=== PATIENT | male | born 1995 | race Two or more races ===

== ENCOUNTER 2019-03-15 22:19 | Emergency (ER) | payer BC, OTHER ==
--- NOTE | 2019-03-16 00:42 | CR ---
INDICATION: Chest pain TECHNIQUE: Chest radiograph 1 view COMPARISON: None FINDINGS: Mediastinum: The mediastinum is normal in appearance. The heart silhouette is normal in size and morphology. Lung: Both lungs are unremarkable in appearance. No sign of pleural effusion seen. No pneumothorax is identified. Bone and Soft tissue: Unremarkable for age. IMPRESSION: 1. No acute cardiopulmonary disease is seen. Dictated by: Alban Manzo MD @ 03/16/2019 00:41:12 (Electronically Signed)
--- NOTE | 2019-03-16 01:05 | EDM.PDOC ---
ED HPI GENERAL MEDICAL PROBLEM - General Chief Complaint: Respiratory Problem Stated Complaint: FLU SYMPTOMS Time Seen by Provider: 03/15/19 22:25 Source of Information: Reports: Patient History Limitations: Reports: No Limitations - History of Present Illness INITIAL COMMENTS - FREE TEXT/NARRATIVE: Complains of fever chills and shortness of breath. Patient has a history of influenza in his family at this time Onset: Gradual Duration: Day(s): (3), Getting Worse Location: Reports: Chest Severity: Mild Improves with: Reports: None Worsens with: Reports: None Context: Reports: Sick Contact Associated Symptoms: Reports: Cough, Fever/Chills, Shortness of Breath - Related Data Allergies Allergy/AdvReac Type Severity Reaction Status Date / Time No Known Allergies Allergy Verified 08/30/18 21:33 Home Meds: Home Meds . [No Known Home Meds] 12/03/16 [History] Past Medical History - Past Health History Medical/Surgical History: Denies Medical/Surgical History HEENT History: Reports: None Cardiovascular History: Reports: None Respiratory History: Reports: None Gastrointestinal History: Reports: None Other Gastrointestinal History: inflammed spleen Genitourinary History: Reports: None Musculoskeletal History: Reports: None Neurological History: Reports: None Psychiatric History: Reports: None Endocrine/Metabolic History: Reports: None Hematologic History: Reports: None Immunologic History: Reports: None Oncologic (Cancer) History: Reports: None Dermatologic History: Reports: None - Infectious Disease History Infectious Disease History: Reports: Chicken Pox, Mononucleosis - Past Surgical History Head Surgeries/Procedures: Reports: None Social & Family History - Family History Family Medical History: Noncontributory - Tobacco Use Smoking Status *Q: Never Smoker - Caffeine Use Caffeine Use: Reports: Energy Drinks - Recreational Drug Use Recreational Drug Use: No ED ROS GENERAL - Review of Systems Review Of Systems: Comprehensive ROS is negative, except as noted in HPI. Constitutional: Reports: Fever, Chills HEENT: Reports: No Symptoms Respiratory: Reports: No Symptoms, Shortness of Breath Cardiovascular: Reports: No Symptoms Endocrine: Reports: No Symptoms GI/Abdominal: Reports: No Symptoms : Reports: No Symptoms Musculoskeletal: Reports: No Symptoms Skin: Reports: No Symptoms Neurological: Reports: No Symptoms Psychiatric: Reports: No Symptoms Hematologic/Lymphatic: Reports: No Symptoms Immunologic: Reports: No Symptoms ED EXAM, GENERAL - Physical Exam Exam: See Below Exam Limited By: No Limitations General Appearance: Alert, WD/WN, No Apparent Distress Eye Exam: Bilateral Eye: Normal Fundi, Normal Inspection, PERRL Ears: Normal External Exam, Normal Canal, Hearing Grossly Normal, Normal TMs Ear Exam: Bilateral Ear: Auricle Normal, Canal Normal, TM normal Nose: Normal Inspection, Normal Mucosa, No Blood Throat/Mouth: Normal Inspection, Normal Lips, Normal Teeth, Normal Oropharynx Head: Atraumatic, Normocephalic Neck: Normal Inspection, Supple Respiratory/Chest: No Respiratory Distress, Lungs Clear, Normal Breath Sounds Cardiovascular: Normal Peripheral Pulses, Regular Rate, Rhythm GI/Abdominal: Normal Bowel Sounds, No Abnormal Bruit (Male) Exam: Deferred Rectal (Males) Exam: Deferred Extremities: Normal Inspection, Normal Range of Motion Neurological: Alert, Oriented, CN II-XII Intact, Normal Cognition Skin Exam: Warm, Dry, Intact, Normal Color Course - Vital Signs Last Recorded V/S: Last Vital Signs Temp 97.8 F 03/15/19 23:16 Pulse 88 03/15/19 23:16 Resp 18 03/15/19 23:16 BP 130/69 03/15/19 23:16 Pulse Ox 97 03/15/19 23:16 - Orders/Labs/Meds Orders: Active Orders 24 hr Category Date Time Status INFLUENZA A+B AG SCREEN [RM] Stat Lab 03/16/19 00:05 Ordered Departure - Departure Time of Disposition: 01:10 Disposition: Home, Self-Care 01 Condition: Good Clinical Impression: Influenza - Discharge Information *PRESCRIPTION DRUG MONITORING PROGRAM REVIEWED*: Yes *COPY OF PRESCRIPTION DRUG MONITORING REPORT IN PATIENT CARLA: Yes Instructions: Influenza, Adult, [id number], VIS, Influenza (Flu) Vaccine ( Live, Intranasal) - CDC (10/08/2014) Referrals: PCP,None [Primary Care Provider] - Forms: ED Department Discharge Sepsis Event Note - Evaluation Sepsis Screening Result: No Definite Risk - Focused Exam Vital Signs: Vital Signs Temp Pulse Resp BP Pulse Ox 03/15/19 23:16 97.8 F 88 18 130/69 97 Date Exam was Performed: 03/16/19 Time Exam was Performed: 01:06 - My Orders Last 24 Hours: My Active Orders 03/16/19 00:05 INFLUENZA A+B AG SCREEN [RM] Stat - Assessment/Plan Last 24 Hours: My Active Orders 03/16/19 00:05 INFLUENZA A+B AG SCREEN [RM] Stat
[2019-03-16 01:24] VITALS: BP 112/56; PULSE 68
== END 2019-03-16 01:15 | disposition home or self-care (01) ==
LOC: MW.ED 22:19
DX: J11.1 Influenza due to unidentified influenza virus with other respiratory manifestations (principal)
CPT/HCPCS: 71045; 71045-26; 87804; 99285-25

== ENCOUNTER 2019-11-21 22:14 | Emergency (ER) | payer BC, OTHER ==
[2019-11-21] MEDS ORDERED: Sodium Chloride 0.9% 10 ML Syringe FLUSH PRN (22:19)
[2019-11-21] MEDS ORDERED: Sodium Chloride 0.9% 2.5 ML Syringe FLUSH PRN (22:19)
[2019-11-21] MEDS ORDERED: Aspirin 81 MG Tab.Chew PO ONE (22:19)
[2019-11-21] MEDS ORDERED: Sodium Chloride 0.9% 1,000 ML IV ONE (22:19)
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
--- NOTE | 2019-11-21 22:40 | CR ---
Chest: Frontal view of the chest was obtained. Comparison: No prior chest x-ray. Heart size and mediastinum are normal. Lungs are clear with no acute parenchymal change. Bony structures appear within normal limits. Impression: 1. Nothing acute is seen on frontal chest x-ray. Diagnostic code #1 Study was dictated in MDT
[2019-11-21 22:44] LABS: BLOOD UREA NITROGEN,BUN 16 mg/dL (7.0-18.0); CARBON DIOXIDE,CO2 15.5 mmol/L (21.0-32.0); CHLORIDE,CL 103 mmol/L (98-107); GLUCOSE RANDOM 119 mg/dL (74-106); SODIUM,NA 142 mmol/L (136-148)
[2019-11-21] MEDS ORDERED: Acetaminophen 325 MG Tab PO ONE (22:47)
[2019-11-21] MEDS ORDERED: Acetaminophen 500 MG Tab ONE (22:49)
[2019-11-21] MEDS ORDERED: Acetaminophen 500 MG Tab PO ONE (22:51)
--- NOTE | 2019-11-22 00:17 | CT ---
INDICATION: Headache TECHNIQUE: CT head without contrast. COMPARISON: None available FINDINGS: The ventricles and sulci are within normal limits. There is no mass effect or midline shift. There is no loss of saini-white differentiation. There is mild prominence of the pituitary gland which demonstrates increased attenuation, although some of this could be related to regional artifact. There is no evidence of an acute extra-axial hemorrhage. No acute calvarial fracture is seen. There is mild maxillary sinus mucosal thickening with a left maxillary sinus air-fluid level and inspissated debris. The mastoid air cells are clear. The visualized orbits are within normal limits. IMPRESSION: No evidence of an acute extra-axial hemorrhage, mass effect or loss of saini-white differentiation. Mild pituitary prominence, demonstrating high attenuation, versus artifact. Correlate clinically and, if indicated, with follow-up imaging evaluation. Maxillary sinus disease with a left maxillary sinus air-fluid level. Dictated by Chris Lau MD @ 11/22/2019 12:14:20 AM Please note that all CT scans at this facility use dose modulation, iterative reconstruction, and/or weight-based dosing when appropriate to reduce radiation dose to as low as reasonably achievable. Dictated by: Chris Lau MD @ 11/22/2019 00:14:26 (Electronically Signed)
[2019-11-23 02:08] VITALS: BP 129/87; PULSE 88
== END 2019-11-23 00:44 | disposition home or self-care (01) ==
LOC: MW.ED 22:14
DX: R42 Dizziness and giddiness (principal); R51 Headache; R00.0 Tachycardia, unspecified; R06.02 Shortness of breath
CPT/HCPCS: 36415; 70450; 71045; 80053; 84484; 85025; 85379; 93005; 96360; 99285; A9270; J7030; 99283

== ENCOUNTER 2020-07-01 08:03 | Day surgery (SDC) | payer OTHER ==
[2020-07-01] MEDS ORDERED: Morphine 4 MG/ML Syringe IVPUSH ONE ×2 (08:18→12:35)
[2020-07-01] MEDS ORDERED: Ondansetron 4 MG/2 ML SDV IVPUSH ONE (08:18)
[2020-07-01] MEDS ORDERED: Sodium Chloride 0.9% 1,000 ML IV ONE (08:18)
[2020-07-01 08:55] LABS: BLOOD UREA NITROGEN,BUN 10 mg/dL (7.0-18.0); CARBON DIOXIDE,CO2 27.6 mmol/L (21.0-32.0); CHLORIDE,CL 103 mmol/L (98-107); GLUCOSE RANDOM 105 mg/dL (74-106); LIPASE 73 U/L (73-393); POTASSIUM,K 4.3 mmol/L (3.5-5.1); SODIUM,NA 141 mmol/L (136-148)
--- NOTE | 2020-07-01 09:01 | CR ---
INDICATION: Epigastric pain TECHNIQUE: Chest 1 views COMPARISON: November 21, 2019 FINDINGS: Cardiovascular and mediastinum: Heart size and vasculature are normal in caliber and appearance. Lungs and pleural spaces: Lungs are clear. No sign of infiltrate or mass. No sign of pleural effusion. No pneumothorax. Bones and soft tissues: No significant findings. IMPRESSION: No acute findings and no significant changes from the prior exam. Dictated by Reinier Palacios MD @ 07/01/2020 8:59:[address] Reinier Palacios @ Jul 01 2020 8:59AM
[2020-07-01] MEDS ORDERED: Iopamidol 755 MG/ML 500 ML Multipack Bottle IVPUSH ONE (09:18)
--- NOTE | 2020-07-01 10:12 | CT ---
INDICATION: Epigastric pain. TECHNIQUE: CT of the abdomen and pelvis with 100 cc Isovue 370 IV contrast. Coronal and sagittal reconstructions. COMPARISON: None. FINDINGS: Marked diffuse hepatic steatosis. Areas of focal fatty sparing about the gallbladder fossa. Hepatic and portal veins are patent. The gallbladder, spleen, pancreas, and adrenal glands are negative. Symmetric enhancement of the kidneys. 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 No hydronephrosis. No obstructing urinary calculi. The bladder and prostate gland are unremarkable. Small fat containing right inguinal hernia. No evidence of bowel obstruction. The colon is normal in appearance. The appendix is upper limits of normal in size measuring 6-7 mm in diameter and contains diffuse hyperdense material which may represent appendicoliths (series 203, image 49). No surrounding inflammatory changes or fluid collection. No intraperitoneal free air or fluid. No lymphadenopathy. Small benign bone island in the right femoral head. The bones are otherwise unremarkable. Small nodule along the right minor fissure most likely represents a benign intrapulmonary lymph node (series 202 image 3). The lung bases are otherwise clear. IMPRESSION: 1. Marked diffuse hepatic steatosis. 2. Appendix size upper limits of normal containing diffuse hyperdense material which may represent appendicoliths. No current evidence of inflammation. 3. No other acute findings in the abdomen or pelvis. Please note that all CT scans at this facility use dose modulation, iterative reconstruction, and/or weight-based dosing when appropriate to reduce radiation dose to as low as reasonably achievable. Dictated by Krista Tomlin MD @ 07/01/2020 10:10:[address] Krista Tomlin @ Jul 01 2020 10:10AM
--- NOTE | 2020-07-01 10:15 | EDM.PDOC ---
ED HPI GENERAL MEDICAL PROBLEM - General Chief Complaint: Abdominal Pain Stated Complaint: stomache pain Time Seen by Provider: 07/01/20 08:10 - History of Present Illness INITIAL COMMENTS - FREE TEXT/NARRATIVE: Patient is a 25-year-old male he is otherwise well is presenting with aching 8 out of 10 periumbilical abdominal pain associated with nonbloody nonbilious emesis symptoms have been constant gradually worsening since 10pm last night associated with p.o. intolerance. No diarrhea. No fevers no chest pain no cough no shortness of breath. No other symptoms. Patient can tolerate small sips of water but anything more than at least emesis. No alleviating factors the pain radiates around bilateral to the lower back. Abdominal Pain Score (Numeric/FACES): 9 - Related Data Allergies Allergy/AdvReac Type Severity Reaction Status Date / Time No Known Allergies Allergy Verified 07/01/20 08:42 Home Meds: Home Meds . [No Known Home Meds] 12/03/16 [History] Past Medical History - Past Health History Medical/Surgical History: Denies Medical/Surgical History HEENT History: Reports: None Cardiovascular History: Reports: None Respiratory History: Reports: None Gastrointestinal History: Reports: None Other Gastrointestinal History: inflammed spleen Genitourinary History: Reports: None Musculoskeletal History: Reports: None Neurological History: Reports: None Psychiatric History: Reports: None Endocrine/Metabolic History: Reports: None Hematologic History: Reports: None Immunologic History: Reports: None Oncologic (Cancer) History: Reports: None Dermatologic History: Reports: None - Infectious Disease History Infectious Disease History: Reports: Chicken Pox, Mononucleosis, Novel Coronavirus - Past Surgical History Head Surgeries/Procedures: Reports: None Social & Family History - Family History Family Medical History: No Pertinent Family History - Tobacco Use Tobacco Use Status *Q: Never Tobacco User - Caffeine Use Caffeine Use: Reports: Energy Drinks - Recreational Drug Use Recreational Drug Use: No ED ROS GENERAL - Review of Systems Review Of Systems: See Below Free Text/Narrative/Comment: General: No fever. Skin: No rash. Eyes: No vision problems. ENT: No sore throat. Neck: No neck stiffness. Respiratory: No shortness of breath. Cardiac: No chest pain. Gastrointestinal: Per HPI Urinary: No dysuria. Musculoskeletal: No myalgias/arthralgias. Neurologic: No headache. ED EXAM, GENERAL - Physical Exam Exam: See Below Free Text/Narrative:: General Appearance: No acute distress, appears comfortable Skin: No rash HEENT: Normocephalic/atraumatic, sclera anicteric, mucous membranes dry Neck: Normal range of motion Chest and Lungs: Bilateral breath sounds, clear to auscultation Cardiovascular: Regular rate and rhythm, no murmur Abdomen: periumbilical tenderness without guarding or rebound abdomen soft Back: Normal Musculoskeletal: No edema or tenderness Neurologic: Awake, alert, no obvious deficits, moving all extremities Psychiatric: Appropriate, cooperative Course - Vital Signs Last Recorded V/S: Last Vital Signs Temp 98.0 F 07/01/20 08:44 Pulse 95 07/01/20 13:25 Resp 18 07/01/20 13:25 BP 102/57 L 07/01/20 13:25 Pulse Ox 98 07/01/20 13:25 - Orders/Labs/Meds Orders: Active Orders 24 hr Category Date Time Status Verify Patient Consent Obtain [RC] ASDIRECTED Care 07/01/20 12:23 Active Labs: Laboratory Tests 07/01/20 07/01/20 07/01/20 Range/Units 08:23 08:23 10:46 WBC 13.18 H (4.0-11.0) K/uL RBC 5.61 (4.50-5.90) M/uL Hgb 17.0 (13.0-17.0) g/dL Hct 49.0 (38.0-50.0) % MCV 87.3 (80.0-98.0) fL MCH 30.3 (27.0-32.0) pg MCHC 34.7 (31.0-37.0) g/dL RDW Std Deviation 41.2 (28.0-62.0) fl RDW Coeff of Frandy 13 (11.0-15.0) % Plt Count 207 (150-400) K/uL MPV 10.70 (7.40-12.00) fL Neut % (Auto) 84.9 H (48.0-80.0) % Lymph % (Auto) 5.6 L (16.0-40.0) % [place] % (Auto) 8.0 (0.0-15.0) % Eos % (Auto) 1.3 (0.0-7.0) % Baso % (Auto) 0.2 (0.0-1.5) % Neut # (Auto) 11.2 H (1.4-5.7) K/uL Lymph # (Auto) 0.7 (0.6-2.4) K/uL [place] # (Auto) 1.1 H (0.0-0.8) K/uL Eos # (Auto) 0.2 (0.0-0.7) K/uL Baso # (Auto) 0.0 (0.0-0.1) K/uL Nucleated RBC % 0.0 /100WBC Nucleated RBCs # 0 K/uL Sodium 141 (136-148) mmol/L Potassium 4.3 (3.5-5.1) mmol/L Chloride 103 (98-107) mmol/L Carbon Dioxide 27.6 (21.0-32.0) mmol/L BUN 10 (7.0-18.0) mg/dL Creatinine 1.1 (0.8-1.3) mg/dL Est Cr Clr Drug Dosing 101.77 mL/min Estimated GFR (MDRD) > 60.0 ml/min Glucose 105 (74-106) mg/dL Calcium 8.5 (8.5-10.1) mg/dL Total Bilirubin 1.3 H (0.2-1.0) mg/dL AST 17 (15-37) IU/L ALT 67 H (14-63) IU/L Alkaline Phosphatase 61 (46-116) U/L Total Protein 7.7 (6.4-8.2) g/dL Albumin 4.3 (3.4-5.0) g/dL Globulin 3.4 (2.6-4.0) g/dL Albumin/Globulin Ratio 1.3 (0.9-1.6) Lipase 73 (73-393) U/L SARS-CoV-2 RNA (ELIER) NEGATIVE (NEGATIVE) Meds: Medications Discontinued Medications Generic Name Dose Route Start Last Admin Trade Name Freq PRN Reason Stop Dose Admin Dexamethasone Confirm 07/01/20 13:08 Dexamethasone 4 Mg/Ml 5 Ml Mdv Administered 07/01/20 13:09 Dose 20 mg .ROUTE .STK-MED ONE Ertapenem Confirm 07/01/20 12:21 07/01/20 12:44 Ertapenem 1 Gm Vial Administered 07/01/20 12:22 Not Given Dose 1 gm .ROUTE .STK-MED ONE Fentanyl Confirm 07/01/20 13:09 Fentanyl 100 Mcg/2 Ml Sdv Administered 07/01/20 13:10 Dose 100 mcg .ROUTE .STK-MED ONE Sodium Chloride 1,000 mls @ 999 mls/hr 07/01/20 08:18 07/01/20 08:39 Normal Saline IV 07/01/20 09:18 999 mls/hr .Bolus ONE Administration Lactated Ringer's 1,000 mls @ 999 mls/hr 07/01/20 10:29 07/01/20 10:33 Ringers, Lactated IV 07/01/20 11:29 999 mls/hr .BOLUS ONE Administration Ertapenem 1 gm/ Sodium 50 mls @ 100 mls/hr 07/01/20 12:07 07/01/20 13:25 Chloride IV 07/01/20 12:36 Not Given ONETIME ONE Ertapenem 1 gm/ Sodium 50 mls @ 100 mls/hr 07/01/20 12:30 07/01/20 12:35 Chloride IV 07/01/20 12:59 100 mls/hr ONETIME ONE Administration Iopamidol 100 ml 07/01/20 09:18 07/01/20 09:19 Iopamidol 755 Mg/Ml 500 Ml Multipack Bottle IVPUSH 07/01/20 09:19 100 ml ONETIME ONE Administration Ketamine HCl Confirm 07/01/20 13:12 Ketamine 500 Mg/10 Ml Mdv Administered 07/01/20 13:13 Dose 500 mg .ROUTE .STK-MED ONE Lidocaine Confirm 07/01/20 13:08 Lidocaine 2% 5 Ml Sdv Administered 07/01/20 13:09 Dose 5 ml .ROUTE .STK-MED ONE Midazolam HCl Confirm 07/01/20 13:09 Midazolam 1 Mg/Ml 2 Ml Sdv Administered 07/01/20 13:10 Dose 2 mg .ROUTE .STK-MED ONE Morphine Sulfate 4 mg 07/01/20 08:18 07/01/20 08:37 Morphine 4 Mg/Ml Syringe IVPUSH 07/01/20 08:19 4 mg ONETIME ONE Administration Morphine Sulfate 4 mg 07/01/20 12:35 07/01/20 12:39 Morphine 4 Mg/Ml Syringe IVPUSH 07/01/20 12:36 4 mg ONETIME ONE Administration Ondansetron HCl 4 mg 07/01/20 08:18 07/01/20 08:37 Ondansetron 4 Mg/2 Ml Sdv IVPUSH 07/01/20 08:19 4 mg ONETIME ONE Administration Ondansetron HCl Confirm 07/01/20 13:08 Ondansetron 4 Mg/2 Ml Sdv Administered 07/01/20 13:09 Dose 4 mg .ROUTE .STK-MED ONE Propofol Confirm 07/01/20 13:09 Propofol 200 Mg/20 Ml Sdv Administered 07/01/20 13:10 Dose 400 mg .ROUTE .STK-MED ONE Rocuronium [place] Confirm 07/01/20 13:08 Rocuronium [place] 50 Mg/5 Ml Syringe Administered 07/01/20 13:09 Dose 50 mg .ROUTE .STK-MED ONE Departure - Departure Time of Disposition: 12:09 Disposition: Still A Patient 30 Condition: Good Clinical Impression: Acute appendicitis - Discharge Information *PRESCRIPTION DRUG MONITORING PROGRAM REVIEWED*: Not Applicable *COPY OF PRESCRIPTION DRUG MONITORING REPORT IN PATIENT CARLA: Not Applicable Forms: ED Department Discharge Sepsis Event Note (ED) - Evaluation Sepsis Screening Result: No Definite Risk - Focused Exam Vital Signs: Vital Signs Temp Pulse Resp BP Pulse Ox 07/01/20 13:25 95 18 102/57 L 98 07/01/20 10:54 92 16 117/63 96 07/01/20 10:50 126/73 07/01/20 10:10 97 16 106/72 97 07/01/20 09:40 90 110/56 L 97 07/01/20 08:44 98.0 F 93 17 102/54 L 95 - Assessment/Plan Assessment:: 25-year-old male presenting with signs and symptoms most insistent with a gastritis. There is a significant viral gastritis it is going around the community and this could be an additional case of that. However, multiple other options considered as well. Given the focal abdominal tenderness CT has been ordered to exclude diverticulitis and appendicitis. Could also consider pancreatitis though no clear risk factors for this. No cough no fever no myalgias nothing that suggest coronavirus infection. Patient does clearly of dry mucous membranes is clinically dehydrated so IV fluid has been ordered in addition to Zofran. Further work-up and disposition pending results of initial testing response to therapy. 1025: Labs with minimal leukocytosis. CT scan demonstrates an appendix that is at the upper limits of normal with significant material within it but no periappendiceal cecal inflammation. On repeat assessment his symptoms have improved with the morphine. However, on exam he continues to have periumbilical and right lower quadrant abdominal pain. Given this we will discuss with general surgery. 1030: Pt discussed with Dr. Teague. He will come assess the patient. 1208: Pt evaluated by Dr. Teague. This is felt to be acute appendicitis. Requests Invanz for 24 hour coverage and will plan for surgery this afternoon. If goes well then can likely be same day surgery so will not place bed order at this time. Pt will go from here to OR.
[2020-07-01] MEDS ORDERED: Lactated Ringers 1,000 ML IV ONE (10:29)
[2020-07-01] MEDS ORDERED: Ertapenem 1 GM in Sodium Chloride 0.9% 50 ML IV ONE ×2 (12:07→12:30)
[2020-07-01] MEDS ORDERED: Ertapenem 1 GM Vial ONE (12:21)
[2020-07-01] MEDS ORDERED: Ondansetron 4 MG/2 ML SDV ONE (13:08)
[2020-07-01] MEDS ORDERED: Rocuronium Bromide 50 MG/5 ML Syringe ONE (13:08)
[2020-07-01] MEDS ORDERED: Lidocaine 2% 5 ML SDV ONE (13:08)
[2020-07-01] MEDS ORDERED: Dexamethasone 4 MG/ML 5 ML MDV ONE (13:08)
[2020-07-01] MEDS ORDERED: Propofol 200 MG/20 ML SDV ONE (13:09)
[2020-07-01] MEDS ORDERED: fentaNYL 100 MCG/2 ML SDV ONE (13:09)
[2020-07-01] MEDS ORDERED: Midazolam 1 MG/ML 2 ML SDV ONE (13:09)
[2020-07-01] MEDS ORDERED: Ketamine 500 mg/10 ML MDV ONE (13:12)
--- NOTE | 2020-07-01 13:43 | CONS ---
DATE OF CONSULTATION: 07/01/2020 DATE OF : 1995 PRIMARY CARE PHYSICIAN: None PCP HISTORY OF PRESENT ILLNESS: The patient is a pleasant 25-year-old gentleman who stated that last evening, around 10:30, he developed some abdominal pain. The abdominal pain was more around his umbilicus. He said the pain has slowly increased throughout the evening and was so much he has had come in this morning to be evaluated in the ER. The patient also had some nausea with one emesis. The patient says the pain is more on the right side now. He says that walking or pushing on his abdomen tend to make the pain worse. He denies any changes in his bowel habits. Denies any fevers or chills. He did have a CT scan done which did show an appendix that was upper limits of dilated, but had hyperdense material in it which could represent appendicolith. There were no surrounding inflammatory changes though. He also had diffuse hepatic steatosis. He also had labs done which did show an elevated white cell count of 13.18. PAST MEDICAL HISTORY: Significant for history of mono. CURRENT HOME MEDICATIONS: The patient denies any. ALLERGIES: The patient denies any. PAST SURGICAL HISTORY: The patient denies any. FAMILY HISTORY: 1. Maternal grandfather had pancreatic cancer. 2. Mother had colon cancer. SOCIAL HISTORY: The patient does use chewing tobacco. Denies illicit drug use. Does have occasional alcohol socially. REVIEW OF SYSTEMS: Complete 12+ review of systems was done and was negative except for what is noted in the HPI. LABORATORY DATA: White cell count is 13.18, hemoglobin is 13, and platelet count is 207. Sodium 141, potassium 3.3, chloride 103, bicarbonate is 27.6, BUN 10, and creatinine 1.1. Total bilirubin 1.3, AST is 17, and ALT is 67. COVID is negative. IMAGING: I did review his CT scan. It does show appendix as hyperdense, does go a little more posterior over the psoas muscles which could explain his pain with walking. PHYSICAL EXAMINATION: GENERAL: The patient is resting comfortably in his ER bed. He is alert and oriented, in no acute distress. VITAL SIGNS: Temperature is 98, pulse is 92, blood pressure is 117/63, saturating 96% on room air. HEENT: Head is normocephalic and atraumatic. LUNGS: Clear to auscultation bilaterally. No rhonchi or wheezing heard. HEART: Regular rate and rhythm. No murmur appreciated. ABDOMEN: Soft and nondistended. He is tender on his abdomen in the right side, more at McBurney's. The most pain tends to be on palpation at the McBurney point, but also has it in the distal right flank side. No rebound, but starting to have some guarding. EXTREMITIES: No edema. NEUROLOGIC: Grossly, no motor or neurologic deficits noted. ASSESSMENT AND PLAN: This is a pleasant 25-year-old gentleman with pain that started yesterday, but increasing, was at the umbilicus, now more at the right side, most tender at McBurney point. CT scan shows upper limits of normal dilated appendix with hyperdense material in it, does have a white cell count, and it is most tender at McBurney point. I reviewed with the patient that he likely has acute appendicitis. I went over the risks, goals, and alternatives to laparoscopic appendectomy. Risks include, but not limited to bleeding, infection, abscess formation, failure of the staple line, need to convert to open, injury to nearby structures such as small bowel or ureter, hernia formation, and that this could be something other than appendicitis. The patient understands. The patient wishes to proceed with the surgery. The patient did receive antibiotics. We will get him scheduled in the OR for a laparoscopic appendectomy. All the patient's questions were answered. He does wish to be full code. HANNAH / IVON /[id number]
[2020-07-01] MEDS ORDERED: Famotidine 20 MG/2 ML SDV IVPUSH ONE (14:26)
--- NOTE | 2020-07-01 14:26 | PCM.PREANE ---
Preanesthetic Assessment - Procedure Proposed Procedure: laparoscopic appendectomy - Anesthesia/Transfusion/Family Hx Anesthesia History: No Prior Anesthesia Family History of Anesthesia Reaction: No Transfusion History: No Prior Transfusion(s) - Review of Systems General: No Symptoms Pulmonary: No Symptoms Cardiovascular: No Symptoms Gastrointestinal: No Symptoms Neurological: No Symptoms Other: Reports: None - Physical Assessment NPO Status Date: 07/01/20 NPO Status Time: 10:00 Vital Signs: Last Vital Signs Temp 36.7 C 07/01/20 08:44 Pulse 95 07/01/20 13:25 Resp 18 07/01/20 13:25 BP 102/57 L 07/01/20 13:25 Pulse Ox 98 07/01/20 13:25 Height: 5 ft 9 in Weight: 77.111 kg ASA Class: 1 Mental Status: Alert & Oriented x3 Dentition: Reports: Normal Dentition Thyro-Mental Finger Breadths: 3 Mouth Opening Finger Breadths: 3 ROM/Head Extension: Full Lungs: Clear to Auscultation, Normal Respiratory Effort Cardiovascular: Regular Rate, Regular Rhythm - Lab Values: Laboratory Last Values WBC 13.18 K/uL (4.0-11.0) H 07/01/20 08:23 RBC 5.61 M/uL (4.50-5.90) 07/01/20 08:23 Hgb 17.0 g/dL (13.0-17.0) 07/01/20 08:23 Hct 49.0 % (38.0-50.0) 07/01/20 08:23 MCV 87.3 fL (80.0-98.0) 07/01/20 08:23 MCH 30.3 pg (27.0-32.0) 07/01/20 08:23 MCHC 34.7 g/dL (31.0-37.0) 07/01/20 08:23 RDW Std Deviation 41.2 fl (28.0-62.0) 07/01/20 08:23 RDW Coeff of Frandy 13 % (11.0-15.0) 07/01/20 08:23 Plt Count 207 K/uL (150-400) 07/01/20 08:23 MPV 10.70 fL (7.40-12.00) 07/01/20 08:23 Neut % (Auto) 84.9 % (48.0-80.0) H 07/01/20 08:23 Lymph % (Auto) 5.6 % (16.0-40.0) L 07/01/20 08:23 [place] % (Auto) 8.0 % (0.0-15.0) 07/01/20 08:23 Eos % (Auto) 1.3 % (0.0-7.0) 07/01/20 08:23 Baso % (Auto) 0.2 % (0.0-1.5) 07/01/20 08:23 Neut # (Auto) 11.2 K/uL (1.4-5.7) H 07/01/20 08:23 Lymph # (Auto) 0.7 K/uL (0.6-2.4) 07/01/20 08:23 [place] # (Auto) 1.1 K/uL (0.0-0.8) H 07/01/20 08:23 Eos # (Auto) 0.2 K/uL (0.0-0.7) 07/01/20 08:23 Baso # (Auto) 0.0 K/uL (0.0-0.1) 07/01/20 08:23 Nucleated RBC % 0.0 /100WBC 07/01/20 08:23 Nucleated RBCs # 0 K/uL 07/01/20 08:23 Sodium 141 mmol/L (136-148) 07/01/20 08:23 Potassium 4.3 mmol/L (3.5-5.1) 07/01/20 08:23 Chloride 103 mmol/L (98-107) 07/01/20 08:23 Carbon Dioxide 27.6 mmol/L (21.0-32.0) 07/01/20 08:23 BUN 10 mg/dL (7.0-18.0) 07/01/20 08:23 Creatinine 1.1 mg/dL (0.8-1.3) 07/01/20 08:23 Est Cr Clr Drug Dosing 101.77 mL/min 07/01/20 08:23 Estimated GFR (MDRD) > 60.0 ml/min 07/01/20 08:23 Glucose 105 mg/dL (74-106) 07/01/20 08:23 Calcium 8.5 mg/dL (8.5-10.1) 07/01/20 08:23 Total Bilirubin 1.3 mg/dL (0.2-1.0) H 07/01/20 08:23 AST 17 IU/L (15-37) 07/01/20 08:23 ALT 67 IU/L (14-63) H 07/01/20 08:23 Alkaline Phosphatase 61 U/L (46-116) 07/01/20 08:23 Total Protein 7.7 g/dL (6.4-8.2) 07/01/20 08:23 Albumin 4.3 g/dL (3.4-5.0) 07/01/20 08:23 Globulin 3.4 g/dL (2.6-4.0) 07/01/20 08:23 Albumin/Globulin Ratio 1.3 (0.9-1.6) 07/01/20 08:23 Lipase 73 U/L (73-393) 07/01/20 08:23 SARS-CoV-2 RNA (ELIER) NEGATIVE (NEGATIVE) 07/01/20 10:46 - Allergies Allergies/Adverse Reactions: Allergies Allergy/AdvReac Type Severity Reaction Status Date / Time No Known Allergies Allergy Verified 07/01/20 08:42 - Anesthesia Plan Pre-Op Medication Ordered: None - Acknowledgements Anesthesia Type Planned: General Anesthesia Pt an Appropriate Candidate for the Planned Anesthesia: Yes Alternatives and Risks of Anesthesia Discussed w Pt/Guardian: Yes Pt/Guardian Understands and Agrees with Anesthesia Plan: Yes PreAnesthesia Questionnaire - Past Health History Medical/Surgical History: Denies Medical/Surgical History HEENT History: Reports: None Cardiovascular History: Reports: None Respiratory History: Reports: None Gastrointestinal History: Reports: None Other Gastrointestinal History: inflammed spleen Genitourinary History: Reports: None Musculoskeletal History: Reports: None Neurological History: Reports: None Psychiatric History: Reports: None Endocrine/Metabolic History: Reports: None Hematologic History: Reports: None Immunologic History: Reports: None Oncologic (Cancer) History: Reports: None Dermatologic History: Reports: None - Infectious Disease History Infectious Disease History: Reports: Chicken Pox, Mononucleosis, Novel Coronavirus - Past Surgical History Head Surgeries/Procedures: Reports: None - SUBSTANCE USE Tobacco Use Status *Q: Never Tobacco User Recreational Drug Use History: No - HOME MEDS Home Medications: Home Meds . [No Known Home Meds] 12/03/16 [History] - CURRENT (IN HOUSE) MEDS Current Meds: Current Medications Discontinued Medications Dexamethasone (Dexamethasone 4 Mg/Ml 5 Ml Mdv) Confirm Administered Dose 20 mg .ROUTE .STK-MED ONE Stop: 07/01/20 13:09 Ertapenem (Ertapenem 1 Gm Vial) Confirm Administered Dose 1 gm .ROUTE .STK-MED ONE Stop: 07/01/20 12:22 Last Admin: 07/01/20 12:44 Dose: Not Given Documented by: Fentanyl (Fentanyl 100 Mcg/2 Ml Sdv) Confirm Administered Dose 100 mcg .ROUTE .STK-MED ONE Stop: 07/01/20 13:10 Sodium Chloride (Normal Saline) 1,000 mls @ 999 mls/hr IV .Bolus ONE Stop: 07/01/20 09:18 Last Admin: 07/01/20 08:39 Dose: 999 mls/hr Documented by: Lactated Ringer's (Ringers, Lactated) 1,000 mls @ 999 mls/hr IV .BOLUS ONE Stop: 07/01/20 11:29 Last Admin: 07/01/20 10:33 Dose: 999 mls/hr Documented by: Ertapenem 1 gm/ Sodium (Chloride) 50 mls @ 100 mls/hr IV ONETIME ONE Stop: 07/01/20 12:36 Last Admin: 07/01/20 13:25 Dose: Not Given Documented by: Ertapenem 1 gm/ Sodium (Chloride) 50 mls @ 100 mls/hr IV ONETIME ONE Stop: 07/01/20 12:59 Last Admin: 07/01/20 12:35 Dose: 100 mls/hr Documented by: Iopamidol (Iopamidol 755 Mg/Ml 500 Ml Multipack Bottle) 100 ml IVPUSH ONETIME ONE Stop: 07/01/20 09:19 Last Admin: 07/01/20 09:19 Dose: 100 ml Documented by: Ketamine HCl (Ketamine 500 Mg/10 Ml Mdv) Confirm Administered Dose 500 mg .ROUTE .STK-MED ONE Stop: 07/01/20 13:13 Lidocaine (Lidocaine 2% 5 Ml Sdv) Confirm Administered Dose 5 ml .ROUTE .STK-MED ONE Stop: 07/01/20 13:09 Midazolam HCl (Midazolam 1 Mg/Ml 2 Ml Sdv) Confirm Administered Dose 2 mg .ROUTE .STK-MED ONE Stop: 07/01/20 13:10 Morphine Sulfate (Morphine 4 Mg/Ml Syringe) 4 mg IVPUSH ONETIME ONE Stop: 07/01/20 08:19 Last Admin: 07/01/20 08:37 Dose: 4 mg Documented by: Morphine Sulfate (Morphine 4 Mg/Ml Syringe) 4 mg IVPUSH ONETIME ONE Stop: 07/01/20 12:36 Last Admin: 07/01/20 12:39 Dose: 4 mg Documented by: Ondansetron HCl (Ondansetron 4 Mg/2 Ml Sdv) 4 mg IVPUSH ONETIME ONE Stop: 07/01/20 08:19 Last Admin: 07/01/20 08:37 Dose: 4 mg Documented by: Ondansetron HCl (Ondansetron 4 Mg/2 Ml Sdv) Confirm Administered Dose 4 mg .ROUTE .STK-MED ONE Stop: 07/01/20 13:09 Propofol (Propofol 200 Mg/20 Ml Sdv) Confirm Administered Dose 400 mg .ROUTE .STK-MED ONE Stop: 07/01/20 13:10 Rocuronium [place] (Rocuronium [place] 50 Mg/5 Ml Syringe) Confirm Administered Dose 50 mg .ROUTE .STK-MED ONE Stop: 07/01/20 13:09
[2020-07-01] MEDS ORDERED: fentaNYL 50 MCG/ML SDV IVPUSH ONE (14:27)
[2020-07-01] MEDS ORDERED: Famotidine 20 MG/2 ML SDV ONE (14:43)
[2020-07-01] MEDS ORDERED: Bupivacaine 25%/EPINEPHrine/PF 0 ML ONE (15:52)
[2020-07-01] MEDS ORDERED: Bupivacaine 0.5% 30 ML SDV ONE (15:52)
[2020-07-01] MEDS ORDERED: Octyl 2-Cyanoacrylate 1 Tube ONE (15:52)
[2020-07-01] MEDS ORDERED: Glycopyrrolate 0.2 MG/ML SDV ONE ×2 (16:05)
--- NOTE | 2020-07-01 16:50 | PCM.OPNOTE ---
- General Post-Op/Procedure Note Date of Surgery/Procedure: 07/01/20 Operative Procedure(s): laparoscopic appendectomy Findings: dilated appendix, some induration. dictation number [id number] Pre Op Diagnosis: acute appendicitis Post-Op Diagnosis: acute appendicitis Anesthesia Technique: General ET Tube Primary Surgeon: Jason Teague Pathology: appendix EBL in mLs: 5 Complications: None Condition: Good
[2020-07-01] MEDS ORDERED: Acetaminophen/HYDROcodone 325-5 MG Tab PO PRN (16:54)
[2020-07-01] MEDS ORDERED: Ondansetron 4 MG/2 ML SDV IVPUSH PRN (16:54)
[2020-07-01] MEDS ORDERED: HYDROmorphone 2 MG/ML Syringe IVPUSH PRN (16:54)
[2020-07-01] MEDS ORDERED: Lactated Ringers 1,000 ML IV SCH (17:00)
[2020-07-01] MEDS: fentaNYL 100 MCG/2 ML SDV IVPUSH PRN ×2 (17:25→17:42)
--- NOTE | 2020-07-01 18:59 | PCM.POSTAN ---
POST ANESTHESIA ASSESSMENT - MENTAL STATUS Mental Status: Alert, Oriented - VITAL SIGNS Vital Signs: Last Vital Signs Temp 36.7 C 07/01/20 18:40 Pulse 78 07/01/20 18:40 Resp 14 07/01/20 18:40 BP 104/50 L 07/01/20 18:40 Pulse Ox 96 07/01/20 18:40 - RESPIRATORY Respiratory Status: Respiratory Rate WNL, Airway Patent, O2 Saturation Stable - CARDIOVASCULAR CV Status: Pulse Rate WNL, Blood Pressure Stable - GASTROINTESTINAL GI Status: No Symptoms - PAIN Pain Score: 0 - POST OP HYDRATION Hydration Status: Adequate & Stable
--- NOTE | 2020-07-01 19:20 | PCM48HPAN ---
Post Anesthesia Note - EVALUATION WITHIN 48HRS OF ANESTHETIC Vital Signs in Normal Range: Yes Patient Participated in Evaluation: Yes Respiratory Function Stable: Yes Airway Patent: Yes Cardiovascular Function Stable: Yes Hydration Status Stable: Yes Pain Control Satisfactory: Yes Nausea and Vomiting Control Satisfactory: Yes Mental Status Recovered: Yes Vital Signs: Last Vital Signs Temp 36.7 C 07/01/20 18:40 Pulse 78 07/01/20 18:40 Resp 14 07/01/20 18:40 BP 104/50 L 07/01/20 18:40 Pulse Ox 96 07/01/20 18:40
--- NOTE | 2020-07-01 21:44 | OR ---
SURGEON: LIZZY PELAEZ MD DATE OF PROCEDURE: 07/01/2020 PREOPERATIVE DIAGNOSIS: Acute appendicitis. POSTOPERATIVE DIAGNOSIS: Acute appendicitis. PROCEDURE PERFORMED: Laparoscopic appendectomy. PRIMARY SURGEON: Lizzy Pelaez MD ANESTHESIA: General. ESTIMATED BLOOD LOSS: 5 mL. SPECIMEN: Appendix. REASON FOR PROCEDURE: The patient is a pleasant 25-year-old gentleman who had pain that started yesterday said around his umbilicus and then kind of more to his right side, a little more in the right lower abdomen. He came in for evaluation. He did have elevated white cell count, and a CT scan that showed a minimally dilated appendix but with a lot of to it. I did go over with the patient risks, goals, and alternatives of the surgery. Risks include but not limited to bleeding, infection, abscess formation, failure of staple line, need to convert to open, injury to nearby structures, and that this could be something other than appendicitis. Patient understands, wishes to proceed. OPERATIVE NARRATIVE: The patient was brought back to the OR. He was prepped and draped in usual sterile fashion. SCDs placed. Bowser catheter placed. The patient had already received antibiotics, and anesthesia was provided by the anesthesia team. After time-out was performed, an infraumbilical incision was made. Now, the umbilical stalk was then grasped, was slightly elevated, and the abdominal cavity was entered with Veress needle. Syringe was placed and drawbacks with no succus or blood, had a positive drop test. Insufflation was began, and pneumoperitoneum was established. A 5 mm trocar was placed under direct visualization with a 5 mm camera into the abdominal cavity. The abdomen was then inspected. No entry injury was noted. Now, another 5 mm trocar was placed in the suprapubic area and a 12 mm in the left lower abdomen, both under direct visualization. The patient was then put head-down in a plane towards myself. The appendix was identified. It did appear to be slightly dilated and felt little indurated and little firm. No signs of any gross perforation. Small window was made at the base of the mesoappendix. Now, the mesoappendix was then taken with Harmonic Scalpel. There was good hemostasis. A blue load linear stapler was placed at the base of the appendix at the junction of the appendix and cecum. The appendix was placed in EndoCatch bag and removed. Now, the operative site was again inspected. Staple line appeared intact. There was 1 area on the edge that had some slight bleeding. Because of this, clip was placed at this edge and had good resolution of bleeding. I had to do some suction irrigation. Again, on inspection, staple line appeared intact and there was now good hemostasis. The rest of the abdomen was now inspected. I did go all the way down to small bowel. No other abnormalities were seen. Did not see anything in the pelvis, also looked at liver. Now, the 12 mm trocar was removed and closed laparoscopically with 0 Vicryl. Now, the pneumoperitoneum was released, and the 5 mm trocars were removed. All the trocar sites were injected with the rest of the local. They were closed with 4-0 Monocryl and Dermabond. At the end of the case, sponge and needle counts were correct. The patient was transferred to recovery room in stable condition. HANNAH / IVON /[id number]
[2020-07-01 22:50] VITALS: BP 110/62; PULSE 86
== END 2020-07-01 22:15 | disposition home or self-care (01) ==
LOC: MW.ED 08:03 → MW.SDS 14:30 → MW.MS 16:54 → MW.SDS 16:54
PROVIDERS: ATTEND Surgery
DX: K35.80 Unspecified acute appendicitis (principal); D72.829 Elevated white blood cell count, unspecified; Z80.0 Family history of malignant neoplasm of digestive organs; Z86.16 Personal history of COVID-19; Z01.812 Encounter for preprocedural laboratory examination; Z20.822 Contact with and (suspected) exposure to COVID-19
CPT/HCPCS: 36415; 44970; 71045; 74177; 80053; 83690; 85025; 87635; 88304; 96374; 96375; 99285; A9270; J1100; J1170; J1335; J2250; J2270; J2405; J2704; J3010; J3490; J7030; J7120; Q9967; 00840; 99284; U0002

== ENCOUNTER 2022-01-26 18:07 | Emergency (ER) | payer BC, OTHER ==
[2022-01-26] MEDS ORDERED: Ibuprofen 400 MG Tab PO ONE (19:11)
[2022-01-26] MEDS ORDERED: Acetaminophen 325 MG Tab PO ONE (19:11)
[2022-01-26 19:56] LABS: CORONAVIRUS COVID-19 NAA NEGATIVE (NEGATIVE); INFLUENZA A NAA NEGATIVE (NEGATIVE); INFLUENZA B NAA NEGATIVE (NEGATIVE); RESPIRATORY SYNCYTIAL VIR NAA NEGATIVE (NEGATIVE)
[2022-01-26] MEDS ORDERED: Dexamethasone 10 MG/ML SDV PO ONE (19:58)
[2022-01-26] MEDS ORDERED: Penicillin G Benzathine 1,200,000 Units/2 ML Syringe IM ONE (19:59)
[2022-01-26 20:57] VITALS: BP 128/72; PULSE 72
== END 2022-01-26 20:58 | disposition home or self-care (01) ==
LOC: MW.ED 18:07
DX: J02.0 Streptococcal pharyngitis (principal); Z20.822 Contact with and (suspected) exposure to COVID-19
CPT/HCPCS: 0241U; 87651; 96372; 99283; A9270; J0561; J8540

== ENCOUNTER 2024-01-17 07:27 | Day surgery (SDC) | payer OTHER, BC ==
[2024-01-17] MEDS: Lactated Ringers 1,000 ML IV SCH (07:50)
[2024-01-17] MEDS ORDERED: Propofol 200 MG/20 ML SDV ONE (08:15)
[2024-01-17] MEDS ORDERED: Lidocaine 2% 5 ML SDV ONE (08:16)
[2024-01-17] MEDS ORDERED: Midazolam 1 MG/ML 2 ML SDV ONE (08:39)
[2024-01-17] MEDS ORDERED: Ondansetron 4 MG/2 ML SDV ONE (09:06)
[2024-01-17 09:39] VITALS: PULSE 80
[2024-01-17 09:55] VITALS: BP 124/80
== END 2024-01-17 10:05 | disposition home or self-care (01) ==
LOC: MW.SDS 07:27
PROVIDERS: ATTEND Surgery
DX: K64.8 Other hemorrhoids (principal); K59.00 Constipation, unspecified; Z80.0 Family history of malignant neoplasm of digestive organs; F17.290 Nicotine dependence, other tobacco product, uncomplicated
CPT/HCPCS: 45378; J2250; J2405; J2704; J7120; J3490